=== PATIENT | female | born 1985 | race Hispanic/Latino ===

== ENCOUNTER 2018-02-13 21:17 | Emergency (ER) | payer OTHER ==
[2018-02-13] MEDS ORDERED: ONDANSETRON ODT 4 MG TAB ONE (22:10)
[2018-02-13] MEDS ORDERED: ACETAMINOPHEN-CODEINE ELIXIR 5 ML UDCUP ONE (22:10)
[2018-02-13] MEDS ORDERED: CEFTRIAXONE SODIUM 1 GM ONE (22:10)
[2018-02-13] MEDS ORDERED: LIDOCAINE HCL-MPF 1% 2ML VIAL ONE (22:10)
== END 2018-02-13 22:24 | disposition home or self-care (01) ==
LOC: EDBD 21:17 → EDH 21:17
DX: K52.9 Noninfective gastroenteritis and colitis, unspecified (principal); R50.9 Fever, unspecified; Z98.51 Tubal ligation status; Z98.890 Other specified postprocedural states
CPT/HCPCS: 96372; 99283; J0696; J3490